=== PATIENT | male | born 1970 ===

== ENCOUNTER 2020-04-01 12:38 | Inpatient (IN) | payer MEDICAID ==
[~2020-04-01] VITALS: Ht 172.7 cm; Wt 78.3 kg
[2020-04-01 13:00] VITALS: BP_SYST 102; BP_SYST 117; BP_DIAS 69; BP_DIAS 79
[2020-04-01] MEDS: LORazepam 1MG TABLET PO SCH ×3 (13:00→20:11)
[2020-04-01] MEDS ORDERED: POLYETHYLENE GLYCOL 17 GM PACKET PO PRN (13:00)
[2020-04-01] MEDS ORDERED: ONDANSETRON ODT 4 MG PO PRN (13:00)
[2020-04-01] MEDS ORDERED: BISACODYL 10 MG SUPP PR PRN (13:00)
[2020-04-01 13:52] VITALS: BP 117/79
[2020-04-01] MEDS ORDERED: PLEASE ENTER ALLERGIES MC SCH (15:00)
[2020-04-01] MEDS: NICOTINE 21 MG/24 HR PATCH.TD24 TD SCH (16:32)
[2020-04-01 19:10] VITALS: BP 110/74
[2020-04-01] MEDS: DIVALPROEX 500 MG TABLET.DR PO SCH (20:11)
[2020-04-01] MEDS: ACAMPROSATE 333 MG TABLET.DR PO SCH (20:11)
[2020-04-02] MEDS: LORazepam 1MG TABLET PO SCH ×4 (00:19→09:27)
[2020-04-02 06:26] VITALS: BP 104/69
[2020-04-02 07:12] LABS: CHOL/HDL RATIO 4.4; FREE T4 (FREE THYROXINE) 1.23 ng/dL (0.76-1.46); LDL/HDL RATIO 2.7 (0.5-3.0)
[2020-04-02] MEDS ORDERED: CARVEDILOL 3.125 MG TABLET PO SCH (09:00)
[2020-04-02] MEDS ORDERED: SERTRALINE 50MG TABLET PO SCH (09:00)
[2020-04-02] MEDS ORDERED: SERTRALINE 100MG TABLET ONE (09:23)
[2020-04-02] MEDS: DIVALPROEX 500 MG TABLET.DR PO SCH ×2 (09:27→20:33)
[2020-04-02] MEDS: ACAMPROSATE 333 MG TABLET.DR PO SCH ×3 (09:27→20:33)
[2020-04-02] MEDS: THIAMINE 100MG TABLET PO SCH (09:27)
[2020-04-02] MEDS: FOLIC ACID 1 MG TABLET PO SCH (09:27)
[2020-04-02] MEDS: SERTRALINE 50MG TABLET PO SCH (09:28)
[2020-04-02 11:15] LABS: ALANINE AMINOTRANSFERASE 40 U/L (12-78); ALBUMIN 3.3 g/dL (3.4-5.0); ANION GAP 6 mmol/L (5-15); CALCIUM 8.9 mg/dL (8.5-10.1); CHLORIDE 110 mmol/L (98-107); CREATININE 1.35 mg/dL (0.7-1.3)
[2020-04-02 11:17] LABS: ALKALINE PHOSPHATASE 68 U/L (45-117); BILIRUBIN,TOTAL 0.6 mg/dL (0.2-1.0); TOTAL PROTEIN 6.4 g/dL (6.4-8.2)
[2020-04-02 11:36] LABS: BASOPHILS % (AUTO) 2 % (0-1); EOSINOPHILS % (AUTO) 3 % (1-7); LYMPHOCYTES % (AUTO) 32 % (22-44); MEAN CORPUSCULAR HEMOGLOBIN 33.6 pg (27.5-34.5); MEAN CORPUSCULAR HGB CONC 33.6 g/dL (33.2-36.2); MEAN PLATELET VOLUME 7.6 fL (7.4-10.4); MONOCYTES % (AUTO) 9 % (2-9); NEUTROPHILS % (AUTO) 54 % (42-75); PLATELET COUNT 328 x10^3/uL (130-400); RED BLOOD COUNT 4.56 x10^6/uL (4.38-5.82); RED CELL DISTRIBUTION WIDTH 14.5 % (9.4-14.8)
[2020-04-02 11:38] LABS: MD NO
[2020-04-02] MEDS: NICOTINE 21 MG/24 HR PATCH.TD24 TD SCH (12:02)
[2020-04-02] MEDS ORDERED: ACETAMINOPHEN 325 MG TABLET PO PRN (13:30)
[2020-04-02] MEDS ORDERED: LORazepam 1MG TABLET PO SCH (15:00)
[2020-04-02] MEDS: OXYcodone IR 5MG TABLET PO PRN (20:23)
[2020-04-02 20:33] VITALS: BP 116/77
[2020-04-02] MEDS: QUETIAPINE 100MG TABLET PO SCH (20:33)
[2020-04-02] MEDS: CARVEDILOL 3.125 MG TABLET PO SCH (20:34)
[2020-04-03 07:39] VITALS: BP 125/78
[2020-04-03] MEDS ORDERED: SERTRALINE 100MG TABLET ONE (08:29)
[2020-04-03] MEDS: MULTIVITAMIN 1 TABLET PO SCH (08:45)
[2020-04-03] MEDS: SERTRALINE 50MG TABLET PO SCH (08:45)
[2020-04-03] MEDS: DIVALPROEX 500 MG TABLET.DR PO SCH ×2 (08:45→20:16)
[2020-04-03] MEDS: THIAMINE 100MG TABLET PO SCH (08:45)
[2020-04-03] MEDS: ACAMPROSATE 333 MG TABLET.DR PO SCH ×3 (08:45→20:16)
[2020-04-03] MEDS: FOLIC ACID 1 MG TABLET PO SCH (08:45)
[2020-04-03] MEDS: CARVEDILOL 3.125 MG TABLET PO SCH ×2 (08:45→20:17)
[2020-04-03] MEDS ORDERED: FOLIC ACID 1 MG TABLET PO SCH (09:00)
[2020-04-03] MEDS ORDERED: LORazepam 1MG TABLET PO PRN (11:30)
[2020-04-03] MEDS: NICOTINE 21 MG/24 HR PATCH.TD24 TD SCH (13:58)
[2020-04-03] MEDS: OXYcodone IR 5MG TABLET PO PRN (14:01)
[2020-04-03 14:12] LABS: MICROSCOPIC AUTO
[2020-04-03 19:21] VITALS: BP 115/72
[2020-04-03] MEDS: QUETIAPINE 100MG TABLET PO SCH (20:17)
[2020-04-04 07:32] VITALS: BP 120/84
[2020-04-04] MEDS ORDERED: SERTRALINE 100MG TABLET ONE (08:25)
[2020-04-04] MEDS: DIVALPROEX 500 MG TABLET.DR PO SCH ×2 (08:29→20:51)
[2020-04-04] MEDS: MULTIVITAMIN 1 TABLET PO SCH (08:30)
[2020-04-04] MEDS: ACAMPROSATE 333 MG TABLET.DR PO SCH ×3 (08:30→20:51)
[2020-04-04] MEDS: FOLIC ACID 1 MG TABLET PO SCH (08:30)
[2020-04-04] MEDS: CARVEDILOL 3.125 MG TABLET PO SCH ×2 (08:30→20:51)
[2020-04-04] MEDS: THIAMINE 100MG TABLET PO SCH (08:30)
[2020-04-04] MEDS: SERTRALINE 50MG TABLET PO SCH (08:32)
[2020-04-04] MEDS: OXYcodone IR 5MG TABLET PO PRN ×2 (09:28→18:01)
[2020-04-04] MEDS: NICOTINE 21 MG/24 HR PATCH.TD24 TD SCH (13:27)
[2020-04-04 20:00] VITALS: BP 118/78
[2020-04-04] MEDS: QUETIAPINE 100MG TABLET PO SCH (20:51)
[2020-04-05 07:16] VITALS: BP 112/75
[2020-04-05] MEDS ORDERED: SERTRALINE 100MG TABLET ONE (08:21)
[2020-04-05] MEDS: ACAMPROSATE 333 MG TABLET.DR PO SCH ×3 (08:28→20:57)
[2020-04-05] MEDS: MULTIVITAMIN 1 TABLET PO SCH (08:28)
[2020-04-05] MEDS: SERTRALINE 50MG TABLET PO SCH (08:28)
[2020-04-05] MEDS: FOLIC ACID 1 MG TABLET PO SCH (08:29)
[2020-04-05] MEDS: THIAMINE 100MG TABLET PO SCH (08:29)
[2020-04-05] MEDS: CARVEDILOL 3.125 MG TABLET PO SCH ×2 (08:29→20:57)
[2020-04-05] MEDS: DIVALPROEX 500 MG TABLET.DR PO SCH ×2 (08:30→20:57)
[2020-04-05] MEDS: NICOTINE 21 MG/24 HR PATCH.TD24 TD SCH (08:30)
[2020-04-05] MEDS: OXYcodone IR 5MG TABLET PO PRN ×3 (08:41→21:02)
[2020-04-05] MEDS ORDERED: MULT-449 PO (12:08)
[2020-04-05] MEDS ORDERED: QUET100T PO (12:08)
[2020-04-05] MEDS ORDERED: ACAM333T7 PO (12:08)
[2020-04-05] MEDS ORDERED: CARV3.1212 PO (12:08)
[2020-04-05] MEDS ORDERED: NICO-487 TD (12:08)
[2020-04-05] MEDS ORDERED: DIVA-61 PO (12:08)
[2020-04-05] MEDS ORDERED: SERT50TA28 PO (12:08)
[2020-04-05 19:45] VITALS: BP 111/73
[2020-04-05] MEDS: QUETIAPINE 100MG TABLET PO SCH (20:57)
[2020-04-06 06:47] LABS: ANION GAP 4 mmol/L (5-15); CHLORIDE 106 mmol/L (98-107)
[2020-04-06 06:48] LABS: CREATININE 1.38 mg/dL (0.7-1.3)
[2020-04-06 07:00] VITALS: BP 121/85
[2020-04-06] MEDS ORDERED: SERTRALINE 100MG TABLET ONE (08:23)
[2020-04-06] MEDS: OXYcodone IR 5MG TABLET PO PRN ×2 (08:33→08:36)
[2020-04-06] MEDS: DIVALPROEX 500 MG TABLET.DR PO SCH (08:33)
[2020-04-06] MEDS: THIAMINE 100MG TABLET PO SCH (08:36)
[2020-04-06] MEDS: ACAMPROSATE 333 MG TABLET.DR PO SCH (08:36)
[2020-04-06] MEDS: FOLIC ACID 1 MG TABLET PO SCH (08:36)
[2020-04-06] MEDS: MULTIVITAMIN 1 TABLET PO SCH (08:37)
[2020-04-06] MEDS: CARVEDILOL 3.125 MG TABLET PO SCH (08:37)
[2020-04-06] MEDS: SERTRALINE 50MG TABLET PO SCH (08:38)
[2020-04-06] MEDS: NICOTINE 21 MG/24 HR PATCH.TD24 TD SCH (08:38)
== END 2020-04-06 13:00 | disposition home or self-care (01) | DRG 751 ==
LOC: 3E 13:02
PROVIDERS: ADMIT Psychiatry & Neurology Psychosomatic Medicine; ATTEND Psychiatry & Neurology Psychosomatic Medicine
DX: F33.2 Major depressive disorder, recurrent severe without psychotic features (principal); G47.00 Insomnia, unspecified; I10 Essential (primary) hypertension; I25.10 Atherosclerotic heart disease of native coronary artery without angina pectoris; K21.9 Gastro-esophageal reflux disease without esophagitis; F10.231 Alcohol dependence with withdrawal delirium; N40.0 Benign prostatic hyperplasia without lower urinary tract symptoms; R45.851 Suicidal ideations; F17.200 Nicotine dependence, unspecified, uncomplicated; D72.829 Elevated white blood cell count, unspecified; D53.9 Nutritional anemia, unspecified; F12.10 Cannabis abuse, uncomplicated; Z79.899 Other long term (current) drug therapy; Z88.5 Allergy status to narcotic agent
CPT/HCPCS: 36415; 71045; 80048; 80053; 80061; 81001; 82140; 84439; 84443; 85025; 93005